=== PATIENT | female | born 1975 | race Hispanic/Latino ===

== ENCOUNTER 2025-06-18 11:11 | Emergency (ER) | payer OTHER, SELFPAY ==
[2025-06-18 11:24] VITALS: BP 143/91; PULSE 104; RESP 16; TEMP 36.8; O2SAT 100
--- NOTE | 2025-06-18 11:28 | ED_ITS ---
HPI - Abdominal Pain General Chief Complaint: Abdominal Pain Stated Complaint: Abdominal Pain Time Seen by Provider: 06/18/25 11:30 Mode of arrival: ambulatory Limitations: no limitations History of Present Illness HPI narrative: 50-year-old female presents with concern of for abdominal pain for 3 days. She is reporting symptoms are epigastric and left upper quadrant, she is tender to touch. She had 1 episode of vomiting today. She was reporting frequent stools but no diarrhea or loose stool. She reports pain is constant and is 8/10. She was recently diagnosed with diabetes, she takes metformin. She reports she feels bloated in tight MD elicited complaint: abdominal pain Related Data Home Medications ?Medication ?Instructions ?Recorded ?Confirmed ?Last Taken ?Type metformin 500 mg tablet mg 06/18/25 Unknown History pantoprazole 20 mg tablet,delayed mg PO 06/18/25 Unkn own History release Allergies Allergy/AdvReac Type Severity Reaction Status Date / Time No Known Allergies Allergy Mild Verified 01/04/11 12:23 Review of Systems Review of Systems: CONSTITUTIONAL: Denies malaise, chills, sweats, or fever. CARDIOVASCULAR: Denies chest pain, palpitations, or edema. RESPIRATORY: Denies cough or dyspnea. Reports abdominal pain with coughing GASTROINTESTINAL: Reports epigastri, LUQc abdominal pain, nausea, 1 episode of vomiting, Denies diarrhea, bloody, or mucous stools. GENITOURINARY: Denies dysuria or hematuria. SKIN: Denies rash or itching. MUSCULOSKELETAL: Denies back pain, joint pain, or myalgia. All systems reviewed & are unremarkable except as noted in HPI and below PMFSH Comments At time of signature, agree with nursing past medical, surgical, social and family history. There is no relevant family history pertinent to the presenting complaint Exam Narrative: GENERAL: Well-appearing, well-nourished, and in no acute distress. HEAD: Normocephalic, atraumatic. EYES: PERRLA, sclera clear, and EOMI. ENT: Nares clear. Mucous membranes moist. NECK: Supple. CHEST: No respiratory distress. Clear to auscultation. No bony deformities, no asymmetry. Speaks in full sentences. HEART: Regular rate and rhythm. ABDOMEN: Obese, LUQ and epigastric tenderness, firm SKIN: Warm, dry, no visible rash. NEURO: Alert and oriented x3. PSYCH: Normal mood and affect Course Course Emergency Course: Patient is aware of, understands and agrees to be transferred to the ED. Patient agrees to proceed directly to the emergency department. Portions of this record may have been created with voice recognition software Level of Care: Express Care Visit Vital Signs Vital signs: Vital Signs Temperature 98.3 F 06/18/25 11:24 Pulse Rate 104 H 06/18/25 11:24 Respiratory Rate 16 06/18/25 11:24 Blood Pressure 143/91 H 06/18/25 11:24 Pulse Oximetry 100 06/18/25 11:24 Oxygen Delivery Room Air 06/18/25 11:24 Temperature 98.3 F 06/18/25 11:24 Pulse Rate 104 H 06/18/25 11:24 Respiratory Rate 16 06/18/25 11:24 Blood Pressure 143/91 H 06/18/25 11:24 Pulse Oximetry 100 06/18/25 11:24 Oxygen Delivery Room Air 06/18/25 11:24 Reviewed. Transfer Transfered to: [facility] Transportation: Other (Private vehicle) Transfer rationale: Abdpminal pain Accepting physician: Keegan MDM - Abdominal Pain MDM Narrative Medical decision making narrative: Patient is nontoxic appearing and in no acute distress Differential Diagnosis Differential diagnosis: Likely abdominal pain, acute appendicitis, constipation, diverticulitis, gastroenteritis, pancreatitis and small bowel obstruction Critical Care Time Critical Care Time Critical Care Time: No Discharge Plan Discharge Clinical Impression: Abdominal pain Patient Disposition: Acute Care Hospital Condition: Stable Patient Language: Guyanese Prescriptions: No Action metformin 500 mg tablet pantoprazole 20 mg tablet,delayed release (DR/EC) PO Follow-up/Referrals: Oly,MD Rodolfo [Primary Care Provider, Unknown] Time of Disposition: 11:48
== END 2025-06-18 11:50 | disposition short-term general hospital (02) ==
PROVIDERS: Emergency Provider Nurse Practitioner; PCP Internal Medicine
DX: R10.13 Epigastric pain (principal); R10.12 Left upper quadrant pain; E11.8 Type 2 diabetes mellitus with unspecified complications; Z79.84 Long term (current) use of oral hypoglycemic drugs
CPT/HCPCS: 99202; 99203; G0463